=== PATIENT | female | born 1970 | race Caucasian/White ===

== ENCOUNTER → 2025-01-17 | Outpatient (CLI) | payer BC ==
[~2025-01-17] MED LIST: AMLO1TAB24; ATOR40TA75; BUPR200T45; LIDOCAINE 1% MDV 20ML VIAL As Ordered ONE; LOSA100T46; METF500T13; SEMA1PEN2; VENL75CA47
[2025-01-17 12:35] VITALS: TEMP 98.2
[2025-01-17 13:20] VITALS: BP 120/85; O2SAT 99
[2025-01-17 14:01] LABS: BASO # 0.1 10^3/uL (0.0-0.2); BASO % 1.2 % (0.0-1.0); EOS # 0.2 10^3/uL (0.0-0.5); EOS % 1.4 % (0.0-3.0); HEMATOCRIT 40.8 % (36.0-47.0); HEMOGLOBIN 13.6 g/dl (12.0-15.5); LYMPH # 3.9 10^3/uL (1.5-5.0); LYMPH % 33.7 % (24.0-44.0); MEAN CORPUSCULAR HEMOGLOBIN 31.1 pg (27.0-33.0); MEAN CORPUSCULAR HGB CONC 33.3 g/dl (32.0-36.5); MEAN CORPUSCULAR VOLUME 93.4 fl (80.0-96.0); MONO # 0.7 10^3/uL (0.0-0.8); MONO % 6.4 % (2.0-8.0); NEUTROPHILS # 6.6 10^3/uL (1.5-8.5); NEUTROPHILS % 56.8 % (36.0-66.0); PLATELET COUNT, AUTOMATED 604 10^3/uL (150-450); RED BLOOD COUNT 4.37 10^6/uL (4.00-5.40); WHITE BLOOD COUNT 11.6 10^3/uL (4.0-10.0)
== END ==
LOC: M IRPRO 11:53
PROVIDERS: ATTEND Nurse Practitioner Women's Health
DX: D75.839 Thrombocytosis, unspecified (principal)